=== PATIENT | male | born 2000 | race Asian ===

== ENCOUNTER 2025-03-02 12:12 | Outpatient (REF) | payer OTHER, SELFPAY ==
--- NOTE | ~2025-03-02 | US_ITS ---
EXAMINATION: US RETROPERITONEUM HISTORY: RENAL COLIC TECHNIQUE: Real-time grayscale ultrasound imaging of the kidneys was performed and images were reviewed. COMPARISON: There are no prior studies available for comparison. FINDINGS: Right kidney: The right kidney measures 10.5 x 5.6 x 5.3 cm. Renal parenchymal echotexture and thickness are normal. There are no masses. There is no hydronephrosis or renal calculi. Left Kidney: The left kidney measures 10.5 x 5.5 x 4.4 cm. Renal parenchymal echotexture and thickness are normal. There are no masses. There is no hydronephrosis or renal calculi. The urinary bladder is unremarkable. A right ureteral jet is identified. No left jet is seen. Before voiding, the urinary bladder measured 7.4 x 8.8 x 8.8 cm, for an estimated volume of 300 mL. After voiding, the urinary bladder measured 1.8 x 0.7 x 3.3 cm, for an estimated volume of 2 mL. The prostate measures 4.5 x 3.1 x 2.9 cm, for an estimated volume of 21.2 mL. US/US retroperitoneal comp IMPRESSION: 1. Unremarkable retroperitoneal ultrasound. 2. Post void bladder residual of 2 mL. 3. Prostate volume of 21.2 mL. Electronically signed by: Grady Thomas MD 03/02/2025 03:10 PM EDT
== END 2025-03-02 12:13 | disposition home or self-care (01) ==
LOC: HO.UMASIMG 12:12
PROVIDERS: Visit Provider Emergency Medicine
DX: N23 Unspecified renal colic (principal)
CPT/HCPCS: 76770

== ENCOUNTER → 2025-03-02 14:30 | Outpatient (BNV) | payer OTHER, SELFPAY | PROVIDERS: Visit Provider Radiology Diagnostic Radiology | DX: N23 Unspecified renal colic (principal) | CPT/HCPCS: 76770 ==